=== PATIENT | female | born 1975 | race African-American/Black ===

== ENCOUNTER 2016-08-27 13:52 | Emergency (ER) | payer BC, MEDICAID ==
[~2016-08-27] VITALS: Ht 170.2 cm; Wt 85.4 kg
[2016-08-27] MEDS ORDERED: KETOROLAC 30MG/ML VIAL IM ONE (15:30)
[2016-08-27 16:43] VITALS: BP 115/65
== END 2016-08-27 16:59 | disposition home or self-care (01) ==
LOC: ER 15:06
DX: G44.009 Cluster headache syndrome, unspecified, not intractable (principal)
CPT/HCPCS: 96372; 99283; J1885; Z7610